=== PATIENT | female | born 1975 | race Caucasian/White ===

== ENCOUNTER → 2020-04-17 | Outpatient (CLI) | payer BC ==
[~2020-04-17] MED LIST: CHOL10003 PO; FERR-46 PO; LACT1CAP5 PO; MULT-658 PO
== END | disposition home or self-care (01) ==
LOC: RAD 16:27
PROVIDERS: ATTEND Orthopaedic Surgery
DX: R22.42 Localized swelling, mass and lump, left lower limb (principal); Z96.652 Presence of left artificial knee joint

== ENCOUNTER 2020-04-18 09:06 | Inpatient (IN) | payer BC ==
[~2020-04-18] VITALS: Ht 157.5 cm; Wt 85.0 kg
[~2020-04-18 09:06] MED LIST changes: -CHOL10003 PO; +EPINEPHRINE 1 MG/ML, 1ML ONE; -FERR-46 PO; +KETOROLAC 60 MG/2 ML ONE; -LACT1CAP5 PO; -MULT-658 PO; +ROPIvacaine/PF 0.2%, 20 ML ONE; +SODIUM CHLORIDE 0.9% 50 ML ONE
[2020-04-18 09:48] VITALS: BP 130/87
[2020-04-18] MEDS ORDERED: CHLORHEXIDINE 15 ML UDC ONE (09:56)
[2020-04-18] MEDS ORDERED: LACTATED RINGERS 1,000 ML IV SCH (10:00)
[2020-04-18] MEDS ORDERED: CHLORHEXIDINE 15 ML UDC MM ONE (10:00)
[2020-04-18 10:06] LABS: HCG UR SG 1.017 (1.003-1.030)
[2020-04-18] MEDS ORDERED: CHOL10003 PO (10:34)
[2020-04-18] MEDS ORDERED: MULT-658 PO (10:34)
[2020-04-18] MEDS ORDERED: FERR-46 PO (10:34)
[2020-04-18] MEDS ORDERED: LACT1CAP5 PO (10:34)
[2020-04-18] MEDS ORDERED: DIPHENHYDRAMINE 50 MG CAPSULE PO PRN (11:00)
[2020-04-18] MEDS ORDERED: ONDANSETRON 4 MG TABLET PO PRN (11:00)
[2020-04-18] MEDS ORDERED: FENTANYL PF 100 MCG/2ML ONE ×2 (11:22→12:06)
[2020-04-18] MEDS ORDERED: PROPOFOL 10 MG/ML, 20ML ONE (11:42)
[2020-04-18] MEDS ORDERED: LIDOCAINE-MPF 2% ,5ML ONE (11:42)
[2020-04-18] MEDS ORDERED: ONDANSETRON 2MG/ML, 2ML IVPush PRN (12:00)
[2020-04-18] MEDS ORDERED: OXYcodone 5 MG/5 ML ORAL.SOL UDC PO PRN (12:00)
[2020-04-18] MEDS ORDERED: HYDROmorphone 1 MG/ML, 1ML INJ ONE (12:06)
[2020-04-18] MEDS ORDERED: OXYcodone 5 MG/5 ML ORAL.SOL UDC ONE (12:06)
[2020-04-18] MEDS: DIAZEPAM 5 MG/ML, 2ML IVPush PRN ×3 (12:07→12:26)
[2020-04-18] MEDS ORDERED: DIAZEPAM 5 MG/ML, 2ML ONE (12:07)
[2020-04-18] MEDS: FENTANYL PF 100 MCG/2ML IV PRN ×2 (12:12→12:32)
[2020-04-18] MEDS ORDERED: HYDROmorphone 2 MG/ML, 1ML ONE (12:17)
[2020-04-18] MEDS: HYDROmorphone 1 MG/ML, 1ML INJ IVPush PRN ×4 (12:28→12:50)
[2020-04-18] MEDS ORDERED: LORazepam 2 MG/ML, 1ML IVPush PRN (12:30)
[2020-04-18 13:45] VITALS: BP 142/77
[2020-04-18] MEDS ORDERED: ONDANSETRON ODT 4 MG ONE (13:46)
[2020-04-18] MEDS: ONDANSETRON 2MG/ML, 2ML IVPush PRN ×2 (15:08→18:41)
[2020-04-18] MEDS: OXYcodone IR 5MG TABLET PO PRN ×2 (16:30→22:07)
[2020-04-18 20:11] VITALS: BP 144/68
[2020-04-18] MEDS: DOCUSATE 100 MG CAPSULE PO SCH (20:21)
[2020-04-18] MEDS: KETOROLAC 30 MG/1 ML IV SCH (20:21)
[2020-04-19 00:19] VITALS: BP 139/79
[2020-04-19 03:54] VITALS: BP 142/77
[2020-04-19] MEDS: KETOROLAC 30 MG/1 ML IV SCH (04:25)
[2020-04-19] MEDS ORDERED: ASPIRIN 81 MG TABLET EC PO SCH ×2 (06:00→18:00)
[2020-04-19 07:58] VITALS: BP 111/70
[2020-04-19] MEDS: CHOLECALCIFEROL 5,000u TAB PO SCH (08:09)
[2020-04-19] MEDS: MULTIVITAMIN 1 TABLET PO SCH (08:09)
[2020-04-19] MEDS: FERROUS SULFATE 325 MG TABLET PO SCH (08:09)
[2020-04-19] MEDS: DOCUSATE 100 MG CAPSULE PO SCH ×2 (08:09→21:28)
[2020-04-19] MEDS: LACTOBACILLUS CHEW TABLET PO SCH (08:09)
[2020-04-19] MEDS: OXYcodone IR 5MG TABLET PO PRN ×4 (08:09→21:28)
[2020-04-19] MEDS ORDERED: KETOROLAC 30 MG/1 ML IV SCH (12:20)
[2020-04-19 13:28] VITALS: BP 79/49
[2020-04-19 13:36] VITALS: BP 107/66
[2020-04-19] MEDS: ASPIRIN 81 MG TABLET EC PO SCH (17:24)
[2020-04-19 19:34] VITALS: BP 109/73
[2020-04-20 00:28] VITALS: BP 117/72
[2020-04-20] MEDS: OXYcodone IR 5MG TABLET PO PRN ×3 (01:52→10:28)
[2020-04-20] MEDS: ASPIRIN 81 MG TABLET EC PO SCH (05:47)
[2020-04-20 06:59] VITALS: BP 102/62
[2020-04-20] MEDS ORDERED: TRAM50TA2 PO (08:37)
[2020-04-20] MEDS ORDERED: OXYC5CAP2 PO (08:37)
[2020-04-20] MEDS: DOCUSATE 100 MG CAPSULE PO SCH (09:33)
[2020-04-20] MEDS: MULTIVITAMIN 1 TABLET PO SCH (09:33)
[2020-04-20] MEDS: FERROUS SULFATE 325 MG TABLET PO SCH (09:33)
[2020-04-20] MEDS: CHOLECALCIFEROL 5,000u TAB PO SCH (09:33)
[2020-04-20] MEDS: LACTOBACILLUS CHEW TABLET PO SCH (09:33)
== END 2020-04-20 13:20 | disposition home or self-care (01) | DRG 554 ==
LOC: OUT 09:06 → OBSVTOIN 10:57 → ORIP 10:57 → 4NE 13:39 → DCLOUNGE 04-20 13:12
PROVIDERS: ADMIT Orthopaedic Surgery; ATTEND Orthopaedic Surgery
PROC: 0SSDXZZ Reposition Left Knee Joint, External Approach (ICD-10-PCS; principal; 2020-04-18 11:30)
DX: M24.662 Ankylosis, left knee (principal); Z20.822 Contact with and (suspected) exposure to COVID-19
CPT/HCPCS: 81025; 87635; 93005; J0171; J1170; J1885; J2405; J2704; J2795; J3010; J3360; Q0162; G0378; J7120